=== PATIENT | male | born 2000 | race Caucasian/White ===

== ENCOUNTER 2019-01-31 18:55 | Emergency (ER) | payer OTHER ==
[~2019-01-31] VITALS: Ht 185.4 cm; Wt 65.4 kg
[2019-01-31 18:58] VITALS: BP 136/67
== END 2019-01-31 20:16 | disposition home or self-care (01) ==
LOC: ED 20:10
DX: J30.89 Other allergic rhinitis (principal); J32.8 Other chronic sinusitis; E11.9 Type 2 diabetes mellitus without complications
CPT/HCPCS: 70486; 99284